=== PATIENT | male | born 1995 | race Two or more races ===

== ENCOUNTER 2017-08-06 23:52 | Emergency (ER) | payer OTHER ==
[~2017-08-06] VITALS: Ht 182.9 cm; Wt 70.3 kg
[2017-08-06] MEDS ORDERED: NKM (23:59)
--- NOTE | 2017-08-07 00:06 | Emergency Room Report ---
History of Present Illness General Chief Complaint: Upper Extremity Injury Source: Patient Present Illness HPI At 4 PM this afternoon while at work the patient had a crush injury to his left middle finger. It was crushed between 2 pieces of concrete. In throbbing intermittently. There is bruising underneath the nail He complains of some numbness there. Patient is right-handed. Tetanus is up to date. No NVD, rashes, cysuria, headache, Was at work whnb this happened. Allergies: Coded Allergies: No Known Allergies (Unverified , 08/06/17) Patient History Social History: Denies: smoking Social History Narrative delivery Immunizations: UTD Reviewed Nursing Documentation: PMH: Agreed, PSxH: Agreed Nursing Documentation-PMH Past Medical History: No Stated History Review of Systems Constitutional: Denies: fever Musculoskeletal: Reports: see HPI Skin: Reports: see HPI Neurological: Reports: see HPI Physical Exam Vital Signs Date Time Temp Pulse Resp B/P (MAP) Pulse Ox O2 Delivery O2 Flow Rate FiO2 08/06/17 23:54 97.9 82 16 133/87 97 Room Air Sp02 EP Interpretation: reviewed, normal General Appearance: well appearing, no apparent distress Head: normocephalic, atraumatic ENT: hearing grossly normal, normal voice Neck: full range of motion, supple Respiratory: no respiratory distress, speaking full sentences Cardiovascular #1: regular rate, rhythm Cardiovascular #2: 2+ radial (R) Gastrointestinal: normal inspection, non tender Musculoskeletal: swelling - Distal middle finger swollen Neurologic: motor strength/tone normal, DTRs symmetric, sensory intact, sensory deficit - slight numbness finger tip, grossly normal Psychiatric: mood/affect normal Skin: other - abrasion and small subungual hematoma. Medical Decision Making Diagnostic Impression: Primary Impression: Fracture of phalanx of left middle finger Qualified Codes: S62.663A - Nondisplaced fracture of distal phalanx of left middle finger, initial encounter for closed fracture ER Course Patient presents after crush injury to his left little finger. Differential includes fracture, contusion. There is evidence of a small subungual hematoma. The patient declines a drainage of this at this time. An x-ray is indicated also the patient was given Motrin. Xray with distal tuft fracture. Splint and sling applied by tech. Position excellent and neurovascular is normal. Improved with treatment. Patient is stable for outpatient observation and treatment Other X-Ray Diagnostic Results Other X-Ray Diagnostic Results : # of Views/Limited Vs Complete: 3 View Indication: Pain EP Interpretation: Yes Interpretation: no dislocation, no soft tissue swelling, other - gc Impression: Other Electronically Signed by: Electronically signed by Elmer Alva MD Last Vital Signs Date Time Temp Pulse Resp B/P (MAP) Pulse Ox O2 Delivery O2 Flow Rate FiO2 08/07/17 00:59 97.9 88 16 135/88 97 Room Air Status: improved Disposition: HOME, SELF-CARE Condition: Improved Scripts Hydrocodone Bit/Acetaminophen 5-325* (NORCO 5-325*) 1 Each Tablet 1 TAB ORAL Q6H Y for For Pain, #10 TAB 0 Refills Prov: Elmer Alva M.D. 08/07/17 Ibuprofen* (MOTRIN*) 600 Mg Tablet 600 MG ORAL Q6H Y for For Pain, #20 TAB Prov: Elmer Alva M.D. 08/07/17 Elmer Alva M.D. Aug 07, 2017 00:06
[2017-08-07 00:39] VITALS: BP 135/88
[2017-08-07] MEDS ORDERED: NORCO 5-325 TA1 EACH ORAL (00:49)
[2017-08-07] MEDS ORDERED: IBUPROFEN600 MG ORAL (00:49)
[2017-08-07 00:59] VITALS: BP 135/88
--- NOTE | 2017-08-07 09:03 | Diagnostic Imaging Report ---
Indication: Reason For Exam: TRAUMA Technique: 3 views left hand Comparison: none Findings: There is an oblique nondisplaced fracture through the ulnar aspect of the terminal tuft of the third distal phalanx. No other acute fractures. No dislocations. The joint spaces are preserved Impression: Positive for third digit terminal tuft fracture This agrees with the preliminary interpretation provided by the emergency room physician
== END 2017-08-07 01:00 | disposition home or self-care (01) ==
LOC: EMR 08-07 00:05
DX: S62.663A Nondisplaced fracture of distal phalanx of left middle finger, initial encounter for closed fracture (principal); W23.0XXA Caught, crushed, jammed, or pinched between moving objects, initial encounter; Y92.69 Other specified industrial and construction area as the place of occurrence of the external cause; Y99.0 Civilian activity done for income or pay
CPT/HCPCS: 99283

== ENCOUNTER 2018-04-25 11:51 | Emergency (ER) | payer BC, OTHER ==
[~2018-04-25] VITALS: Ht 182.9 cm; Wt 74.8 kg
[~2018-04-25 11:51] MED LIST: IBUPROFEN600 MG ORAL; NKM; NORCO 5-325 TA1 EACH ORAL
--- NOTE | 2018-04-25 12:26 | Emergency Room Report ---
History of Present Illness General Chief Complaint: Upper Extremity Injury Source: Patient Present Illness HPI 22-year-old male patient presents ER complaining of bilateral hand pain for the past day. Reports that yesterday was working on his car when he was turning a screw, his hands slipped off the wrench, his left hand hit the ground and his right hand hit the car. Reports left hand pain is worse. Reports swelling of right hand however denies pain. Reports right-hand dominant. Denies taking any medication for relief of pain. Reports no bleeding. Allergies: Coded Allergies: No Known Allergies (Unverified , 08/06/17) Patient History Past Medical History: see triage record Reviewed Nursing Documentation: PMH: Agreed; PSxH: Agreed Nursing Documentation-PMH Past Medical History: No Stated History Review of Systems All Other Systems: negative except mentioned in HPI Physical Exam Vital Signs Date Time Temp Pulse Resp B/P (MAP) Pulse Ox O2 Delivery O2 Flow Rate FiO2 04/25/18 11:59 98.0 67 18 138/81 98 Room Air 98.1 Sp02 EP Interpretation: reviewed, normal General Appearance: well appearing, no apparent distress, alert, GCS 15, non- toxic Head: normocephalic, atraumatic Eyes: bilateral eye normal inspection, bilateral eye PERRL ENT: hearing grossly normal, normal pharynx, no angioedema, normal voice, uvula midline, moist mucus membranes Neck: full range of motion Respiratory: lungs clear, normal breath sounds, no rhonchi, no respiratory distress, no accessory muscle use, no wheezing, speaking full sentences Cardiovascular #1: regular rate, rhythm, no edema Cardiovascular #2: 2+ radial (R), 2+ radial (L) Musculoskeletal: back normal, digits/nails normal, gait/station normal, normal range of motion, swelling - dorsum of left and right hand, no erythema or ecchymosis, other - NVI, cap refill < 2seconds, no snuffbox tenderness, no deformity, no knuckle step off, tender - left fifth metacarpal Neurologic: alert, oriented x3, responsive, motor strength/tone normal, sensory intact Psychiatric: mood/affect normal Skin: no rash Lymphatic: no adenopathy Medical Decision Making PA Attestation Dr. Johnson is my supervising Physician whom patient management has been discussed with. Diagnostic Impression: Primary Impression: Fracture of base of fifth metacarpal bone ER Course Pt. presents to the ED c/o bilateral hand pain. Ddx considered but are not limited to fracture, sprain, strain, contusion, dislocation. No erythema, no warmth to touch, no fever, nontoxic appearing, low suspicion for septic joint. no numbness complaining by palpation, no pulselessness, no pallor, soft compartments, low suspicion for compartment syndrome. Vital signs: are WNL, pt. is afebrile Ordered X-ray and pain medication. ER COURSE Provided with pain medication. An X-ray of the left hand shows fracture at the base of the fifth metacarpal per the preliminary reading. Consult with radiology, states that fracture may extend into the articular joint, will splint hand. Discuss results with the patient. Provided patient with copy of results. Instructed patient to followup with PCP and discuss results of report with patient, discuss need for further treatment and referral. An X-ray of the right hand shows negative for acute disease per the preliminary reading. Likely contusion causing pain symptoms. ulnar gutter Splint was applied to the left hand and was checked afterwards by me showing good alignment and support with distal neurovascular functioning intact. Patient declined right hand splint. Patient instructed on RICE method: rest, ice, compression, elevation. Patient instructed on rest, ice and heat. Patient instructed to be WBAT Contact information for orthopedic urgent care provided, follow-up with urgent care if unable to followup with primary care provider and get referral to telecommunications specialist. Followup with primary care provider. Discuss referral to ortho/pain management/ PT as needed. Discuss further imaging with MRI/CT as needed. Reports pain symptoms improved while in the ER. DISCHARGE: -Rx provided for Ibuprofen for pain symptoms. At this time pt. is stable for d/c to home. Patient is resting comfortably, in no acute distress, nontoxic appearing, talking without difficulty. Will provide printed patient care instructions, and any necessary prescriptions. Patient instructed to follow with primary care provider in 3 - 5 days and to request further follow-up as needed. Care plan and follow up instructions have been discussed with the patient prior to discharge. Take medications as directed. Patient questions asked and answered. Patient reports understanding and agreement to treatment plan. ER precautions given, patient instructed to return to ER immediately for any new or worsening of symptoms. - Please note that this Emergency Department Report was dictated using Dragon final finisher forging dies technology software, occasionally this can lead to erroneous entry secondary to interpretation by the dictation equipment. Other X-Ray Diagnostic Results Other X-Ray Diagnostic Results #1: X-Ray ordered: left hand # of Views/Limited Vs Complete: 3 View Indication: Pain EP Interpretation: Yes PA Xray: Interpretation reviewed, by supervising MD, and agrees with findings. Interpretation: no dislocation, no soft tissue swelling, other - fracture of the base of the fifth metacarpal Impression: Other - fracture at the base of the fifth metacarpal PA Scribe Text Carter Camacho PA-C Other X-Ray Diagnostic Results #2: X-Ray ordered: right-hand # of Views/Limited Vs Complete: 3 View Indication: Pain EP Interpretation: Yes PA Xray: Interpretation reviewed, by supervising MD, and agrees with findings. Interpretation: no dislocation, no soft tissue swelling, no fractures Impression: No acute disease PA Scribe Text Carter Camacho PA-C Last Vital Signs Date Time Temp Pulse Resp B/P (MAP) Pulse Ox O2 Delivery O2 Flow Rate FiO2 04/25/18 11:59 98.0 67 18 138/81 98 Room Air 98.1 Status: improved Disposition: HOME, SELF-CARE Condition: Stable Scripts Ibuprofen* (MOTRIN*) 600 Mg Tablet 600 MG ORAL Q8H PRN for For Pain, #30 TAB 0 Refills Prov: Hi Camacho 04/25/18 Patient Instructions: Metacarpal Fracture, [id number] Additional Instructions: Patient instructed to follow up with primary care provider and discuss further referral to orthopedics/physical therapy/pain management as needed. If unable to followup with PCP, followup with orthopedic urgent care in 5-7 days , call to schedule appointment. Patient instructed on RICE method: rest, ice, compression, elevation. Patient instructed to WBAT. Take medications as directed. Patient questions asked and answered. ER precautions given, patient instructed to return to ER immediately for any new or worsening of symptoms. [facility] [address] [facility] [address] [facility], [address] [email or web address] Hi [email or web address] Apr 25, 2018 12:26
[2018-04-25 12:28] VITALS: BP 133/81
[2018-04-25] MEDS ORDERED: IBUPROFEN600 MG ORAL (13:29)
--- NOTE | 2018-04-25 13:58 | Diagnostic Imaging Report ---
Indication: left hand pain. Findings: 3 views of the left hand were obtained. There is acute intra-articular fracture involving the base of the fifth metacarpal extending into the fifth metacarpal hamate joint. Soft tissue swelling noted. IMPRESSION: Acute intra-articular fracture at the base of the fifth metacarpal.
--- NOTE | 2018-04-25 13:59 | Diagnostic Imaging Report ---
Indication: Right hand pain Findings: 3 views of the right hand were obtained. Normal bony mineralization and alignment are demonstrated. No acute fractures, erosions, or periosteal reaction are seen. Mild dorsal soft tissue swelling noted. Impression: No acute fracture. Soft tissue swelling
[2018-04-25 15:05] VITALS: BP 123/86
[2018-04-25 15:06] VITALS: BP 123/86
== END 2018-04-25 15:07 | disposition home or self-care (01) ==
LOC: EMR 13:40
DX: S62.317A Displaced fracture of base of fifth metacarpal bone, left hand, initial encounter for closed fracture (principal); W18.39XA Other fall on same level, initial encounter; Y93.89 Activity, other specified; Y92.9 Unspecified place or not applicable
CPT/HCPCS: 99284